=== PATIENT | female | born 1990 | race African-American/Black ===

== ENCOUNTER 2016-12-22 22:00 | Emergency (ER) | payer OTHER ==
[2016-12-22 22:06] VITALS: BP 116/53; PULSE 73; TEMP 98; BMI 30.2
[2016-12-22] MEDS ORDERED: TETANUS AND DIPHTHERIA TOXOID 0.5 ML DISP.SYRIN IM ONE (23:16)
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
[2016-12-22] MEDS ORDERED: DOXYCYCLINE HYCLATE 100 MG CAPSULE PO ONE ×2 (23:24→23:30)
[2016-12-22] MEDS ORDERED: CLINDAMYCIN HCL 150 MG CAPSULE (FP) PO ONE (23:24)
[2016-12-22] MEDS ORDERED: CLINDAMYCIN HCL 150 MG CAPSULE (FP) ONE (23:30)
== END 2016-12-22 23:38 | disposition home or self-care (01) ==
LOC: JERFT 22:00 → JER 22:00
PROC: 3E0234Z Introduction of Serum, Toxoid and Vaccine into Muscle, Percutaneous Approach (ICD-10-PCS; principal; 2016-12-22)
DX: S21.051A Open bite of right breast, initial encounter (principal); S20.171A Other superficial bite of breast, right breast, initial encounter; W50.3XXA Accidental bite by another person, initial encounter; Y93.F9 Activity, other caregiving; Y92.118 Other place in children's home and orphanage as the place of occurrence of the external cause; Y99.0 Civilian activity done for income or pay
CPT/HCPCS: 99281-25

== ENCOUNTER 2017-10-13 16:33 | Emergency (ER) | payer OTHER ==
[2017-10-13 16:58] VITALS: BP 137/83; PULSE 86; TEMP 97.4; BMI 32.8
[2017-10-13] MEDS ORDERED: ACETAMINOPHEN 325 MG TABLET (FP) PO ONE (17:24)
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
[2017-10-13] MEDS ORDERED: CYCLOBENZAPRINE HCL 10 MG TABLET (FP) ONE (21:02)
[2017-10-13] MEDS ORDERED: IBUPROFEN 400 MG TABLET (FP) PO ONE (21:03)
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
== END 2017-10-13 23:09 | disposition home or self-care (01) ==
LOC: JER 16:33
DX: S16.1XXA Strain of muscle, fascia and tendon at neck level, initial encounter (principal); V89.2XXA Person injured in unspecified motor-vehicle accident, traffic, initial encounter; Y92.488 Other paved roadways as the place of occurrence of the external cause; Y93.89 Activity, other specified; Y99.8 Other external cause status
CPT/HCPCS: 36415; 70450-TC; 72125-TC; 73030-TC-RT-FY; 84702; 99283-25